=== PATIENT | male | born 1965 | race Caucasian/White ===

== ENCOUNTER 2024-04-27 06:17 | Day surgery (SDC) | payer OTHER, SELFPAY ==
[2024-04-19 13:15] VITALS: BMI 28.1
[2024-04-27] VITALS (13 sets, daily range): BP systolic 128–147; BP diastolic 79–89
[2024-04-27 07:05] LABS: Glucose - Point of Care 196 mg/dl (70-99)
--- NOTE | 2024-04-27 08:48 | ITS.CL.PN ---
Account Receivable Clerk - Procedure Note
Procedure
Procedure Note:
CARDIAC CATHETERIZATION REPORT
Date of Procedure: 04/27/2024
Referring: Dr. Isaak Dwyer MD
Indication: severe CAD on CT coronary
PROCEDURE(S)
1. left heart catheterization
2. coronary angiography
ACCESS: 6F right radial artery (closure: radial band)
CATHETERS
1. 6F JR4
2. 6F JL4
MODERATE SEDATION: 25 minutes of moderate sedation was utilized. An independent medical office technology instructor was present to assist with and help manage the patient's level of consciousness and physiologic status.
ULTRASOUND GUIDED VASCULAR ACCESS (right radial artery): Ultrasound was utilized for vascular access. The vessel was visualized under ultrasound and noted to be patent. An image of the vessel was stored permanently in the patient's medical record.
Under direct ultrasound guidance, vascular access was obtained using a modified Seldinger technique and a 6 [place] sheath was placed.
HEMODYNAMIC DATA
LV 133/8 (EDP 15) mmHg
AO 135/84 (mean 104) mmHg
CORONARY ANGIOGRAPHY
Dominance: co-dominant
LM: large and normal
LAD: large vessel giving rise to a small D1, moderate caliber D2, and small D3. There is mild disease in the proximal LAD (20-30%), mild ostial stenosis of the D2, and otherwise mild luminal irregularities.
LCx: Large vessel giving rise to a large OM1, small OM 2, small OM 3, moderate caliber LPL1, small LPL2, and small LPDA. There are mild luminal irregularities without obstructive coronary artery disease.
RCA: Large vessel giving rise to a moderate caliber RPDA and diminutive RPL system. There are mild luminal irregularities without obstructive coronary artery disease.
RADIATION: dose 344 mGy; DAP 21.4 Gy*cm2; fluoroscopy time 4.7 min
CONCLUSIONS
1. nonobstructive coronary artery disease in a codominant system
2. mildly elevated LVEDP and no aortic stenosis
RECOMMENDATIONS
1. expectant management after cardiac catheterization via right radial approach
2. secondary prevention of coronary artery disease and risk factor modification
Copy to: Dr. Isaak Dwyer MD (skin tanner); Dr. Romie Arias MD (PCP)
Signed: Theodore Aguilar MD, PhD
[2024-04-27] MEDS: NSS 1000 IV (09:26)
[2024-04-27] MEDS: NSS 251 ML IV (09:27)
[2024-04-27] MEDS: LOW STRENGTH ASPIRIN 81 MG PO (09:28)
== END 2024-04-27 12:00 | disposition home or self-care (01) ==
LOC: CATH 06:17
PROVIDERS: ATTENDING PHYSICIAN Student in an Organized Health Care Education/Training Program; FAMILY PHYSICIAN Internal Medicine; OTHER PHYSICIAN Internal Medicine Cardiovascular Disease
DX: I25.10 Atherosclerotic heart disease of native coronary artery without angina pectoris (principal); I10 Essential (primary) hypertension; E78.5 Hyperlipidemia, unspecified; E11.9 Type 2 diabetes mellitus without complications; K21.9 Gastro-esophageal reflux disease without esophagitis; Z87.891 Personal history of nicotine dependence; Z79.84 Long term (current) use of oral hypoglycemic drugs
CPT/HCPCS: 99152; 99153; C1894; 76937; 82962; 93005; 93458; Q9967